=== PATIENT | female | born 1980 | race African-American/Black ===

== ENCOUNTER 2022-04-11 19:22 | Emergency (ER) | payer MEDICAID ==
[~2022-04-11] VITALS: Ht 167.6 cm; Wt 95.0 kg
[2022-04-11 19:26] VITALS: BP 131/88
== END 2022-04-12 01:06 | disposition left against medical advice (07) ==
LOC: ER 19:22
DX: Z53.21 Procedure and treatment not carried out due to patient leaving prior to being seen by health care provider (principal)
CPT/HCPCS: 93005

== ENCOUNTER 2022-04-15 12:39 | Emergency (ER) | payer SELFPAY ==
[~2022-04-15] VITALS: Ht 167.6 cm; Wt 96.0 kg
[2022-04-15 12:56] VITALS: BP 137/108
== END 2022-04-15 19:59 | disposition left against medical advice (07) ==
LOC: ER 12:57
DX: Z53.21 Procedure and treatment not carried out due to patient leaving prior to being seen by health care provider (principal)

== ENCOUNTER 2022-05-21 03:14 | Emergency (ER) | payer MEDICAID, OTHER ==
[~2022-05-21] VITALS: Ht 167.6 cm; Wt 90.0 kg
[2022-05-21 03:24] VITALS: BP 128/89
[2022-05-21 05:52] LABS: CHLORIDE 103 mEq/L (98-107)
[2022-05-21 05:55] LABS: BASOPHILS % 0.6 % (0.0-2.0); EOSINOPHILS % 1.7 % (0.0-5.0); HEMATOCRIT. 40.4 % (36.0-48.0); HEMOGLOBIN. 13.5 g/dL (12.0-16.0); LYMPHOCYTES % 41.6 % (20.0-50.0); MEAN CORPUSCULAR HEMOGLOBIN 30.5 pg (28.0-32.0); MEAN CORPUSCULAR VOLUME 91.2 fL (81.0-99.0); MEAN PLATELET VOLUME 8.9 fl (7.4-10.4); MONOCYTES % 7.3 % (2.0-8.0); NEUTROPHILS % 48.8 % (40.0-76.0); PLATELET 300 x1000/uL (130-400); RED BLOOD CELL COUNT 4.43 mill/uL (4.2-5.4); RED CELL DISTRIBUTION WIDTH 13.3 % (11.6-14.6)
[2022-05-21] MEDS ORDERED: IBUP-2028 MT (06:13)
== END 2022-05-21 06:46 | disposition home or self-care (01) ==
LOC: ER 03:42
DX: R07.89 Other chest pain (principal)
CPT/HCPCS: 36415; 71045; 80053; 84484; 85025; 93005; 99285